=== PATIENT | male | born 1975 | race Two or more races ===

== ENCOUNTER 2016-11-20 19:22 | Emergency (ER) | payer MEDICAID ==
[~2016-11-20] VITALS: Ht 170.2 cm; Wt 108.0 kg
--- NOTE | 2016-11-20 19:49 | Emergency Room Report ---
History of Present Illness General Chief Complaint: Hypertension Present Illness HPI The patient is feeling stressed it with pain in the back of his head. He found his blood pressure was elevated. He treated himself by taking his 's diabetic medications which are metformin 1000 mg and glipizide 4 mg. He decided he needed to be seen. The patient denies any chest pain, shortness of breath, nausea, vomiting, diarrhea, change in vision, sweating, weakness, anxiety. The patient is not treated for hypertension at this time. reports glucose of 421 at home before giving meds. Allergies: Coded Allergies: No Known Allergies (Unverified , 11/20/16) Patient History Past Medical History: see triage record Social History Narrative Reviewed Nursing Documentation: PMH: Agreed, PSxH: Agreed Review of Systems All Other Systems: negative except mentioned in HPI Physical Exam Vital Signs Date Time Temp Pulse Resp B/P Pulse Ox O2 Delivery O2 Flow Rate FiO2 11/20/16 19:35 99.1 98 18 199/99 98 Room Air Sp02 EP Interpretation: reviewed, normal General Appearance: well appearing, no apparent distress, GCS 15 Head: normocephalic Eyes: bilateral eye PERRL, bilateral eye normal inspection ENT: moist mucus membranes Neck: supple Respiratory: lungs clear, normal breath sounds Cardiovascular #1: regular rate, rhythm Cardiovascular #2: 2+ radial (R) Gastrointestinal: normal inspection, normal bowel sounds, non tender, no mass, non-distended Musculoskeletal: back normal, gait/station normal, normal range of motion Neurologic: alert, oriented x3, grossly normal Psychiatric: mood/affect normal Skin: normal inspection, warm/dry, other - sun burn Medical Decision Making Diagnostic Impression: Primary Impression: Hypertension Additional Impression: Unintentional medication ingestion ER Course The patient presents with the back of his head pain and high blood pressure and after taking his 's and diabetic medications. Differential includes essential hypertension, hypertensive urgency, impending hypoglycemia, headache amongst others. Is a nonfocal neurologic exam at this time. Evaluation will be with EKG, chest x-ray and labs including an Accu-Chek. Will be followed his blood pressure and glucose. EKG Diagnostic Results Rate: normal Rhythm: NSR ST Segments: no acute changes Rhythm Strip Diag. Results EP Interpretation: yes Rhythm: NSR, no PVC's, no ectopy Status: improved Disposition: HOME, SELF-CARE Condition: Improved Felicita,Uche M.D. Nov 20, 2016 19:49
[2016-11-20 20:02] VITALS: BP 177/85
[2016-11-20 20:14] LABS: BASOPHILS % (AUTO) 1.9 % (0.0-2.0); EOSINOPHILS % (AUTO) 4.4 % (0.0-3.0); LYMPHOCYTES % (AUTO) 22.1 % (20.0-45.0); MEAN CORPUSCULAR HEMOGLOBIN 31.8 PG (27.0-31.0); MEAN CORPUSCULAR HGB CONC 34.2 G/DL (32.0-36.0); MEAN CORPUSCULAR VOLUME 93 FL (80-99); MEAN PLATELET VOLUME 10.2 FL (6.5-10.1); MONOCYTES % (AUTO) 9.8 % (1.0-10.0); NEUTROPHILS % (AUTO) 61.8 % (45.0-75.0); PLATELET COUNT 156 K/UL (150-450); RED BLOOD COUNT 4.58 M/UL (4.70-6.10); RED CELL DISTRIBUTION WIDTH 12.3 % (11.6-14.8); WHITE BLOOD COUNT 8.1 K/UL (4.8-10.8)
[2016-11-20 20:26] LABS: TROPONIN I < 0.30 ng/mL (<=0.30)
[2016-11-20 20:29] LABS: ALANINE AMINOTRANSFERASE 53 U/L (3-41); ALBUMIN/GLOBULIN RATIO 1.3 (1.0-2.7); ANION GAP 15 (5-15); ASPARTATE AMINO TRANSFERASE 54 U/L (5-40); CALCIUM 9.4 mg/dL (8.6-10.2); CARBON DIOXIDE 26 mEQ/L (20-30); CHLORIDE 100 mEQ/L (98-107); CREATININE 0.9 mg/dL (0.7-1.2); GLOMERULAR FILTRATION RATE > 60 mL/min (>60); HEMOLYSIS 12; POTASSIUM 3.5 mEQ/L (3.4-4.9); SODIUM 141 mEQ/L (135-145); TOTAL PROTEIN 7.6 g/dL (6.6-8.7)
[2016-11-20 21:16] VITALS: BP 166/79
[2016-11-20 22:34] VITALS: BP 170/88
[2016-11-20] MEDS ORDERED: METFORMIN HCL500 M1 ORAL (23:22)
[2016-11-20] MEDS ORDERED: LISINOPRIL10 MG ORAL (23:22)
[2016-11-20] MEDS ORDERED: Lisinopril 10mg tab ORAL ONE (23:30)
[2016-11-20 23:32] VITALS: BP 156/84
[2016-11-20 23:54] VITALS: BP 145/80
[2016-11-20 23:56] VITALS: BP 145/80
--- NOTE | 2016-11-21 10:36 | Diagnostic Imaging Report ---
Indication: Chest pain Technique: Single portable AP view of the chest. Findings: Comparison: None. The bones and extra pulmonary soft tissues, cardiomediastinal silhouette, pulmonary vasculature and parenchyma, and pleural surfaces are unremarkable. IMPRESSION: Negative portable AP chest.
--- NOTE | 2016-11-22 20:07 | Cardiology Report ---
APPROVED REPORT EKG Measurement Heart [id number] ID [id number] Normal sinus rhythm Possible Left atrial enlargement Borderline ECG
== END 2016-11-20 23:56 | disposition home or self-care (01) ==
LOC: EMR 20:10
DX: I10 Essential (primary) hypertension (principal); T38.3X5A Adverse effect of insulin and oral hypoglycemic [antidiabetic] drugs, initial encounter; Y92.9 Unspecified place or not applicable
CPT/HCPCS: 36415; 71010; 80053; 82550; 82962; 84484; 85025; 93005; 99283

== ENCOUNTER 2018-03-22 21:03 | Emergency (ER) | payer MEDICAID ==
[~2018-03-22] VITALS: Ht 172.7 cm; Wt 109.8 kg
[~2018-03-22 21:03] MED LIST: LISINOPRIL10 MG ORAL; METFORMIN HCL500 M1 ORAL
[2018-03-22] MEDS ORDERED: HYDROCHLOROTHIA25 MG ORAL (21:14)
[2018-03-22] MEDS ORDERED: SIMVASTATIN20 MG ORAL (21:14)
[2018-03-22 21:20] VITALS: BP 155/78
[2018-03-22 22:04] VITALS: BP 155/83
--- NOTE | 2018-03-22 22:22 | Emergency Room Report ---
History of Present Illness General Chief Complaint: Hypertension Source: Patient Present Illness HPI Patient is a 42-year-old male presented after increased blood pressure. Patient had recently been seen by his primary provider. He was noted to have elevated blood pressure and was advised to increase the amount of hydrochlorothiazide he was taking. The patient had been noted to have increased stress after the of his brother. He denies any fever. He denies any severe headache or chest discomfort. He reports having increased alcohol use this weekend. He denies any abdominal pain Allergies: Coded Allergies: No Known Allergies (Unverified , 11/20/16) Patient History Past Medical History: see triage record Reviewed Nursing Documentation: PMH: Agreed; PSxH: Agreed Nursing Documentation-PMH Hx Hypertension: Yes Review of Systems All Other Systems: negative except mentioned in HPI Physical Exam Vital Signs Date Time Temp Pulse Resp B/P (MAP) Pulse Ox O2 Delivery O2 Flow Rate FiO2 03/22/18 21:09 98.6 99 16 211/104 99 Room Air Sp02 EP Interpretation: reviewed, normal General Appearance: normal inspection, well appearing, no apparent distress, alert, GCS 15 Head: atraumatic ENT: normal ENT inspection, hearing grossly normal, normal voice Neck: normal inspection, full range of motion, supple, no bony tend Respiratory: normal inspection, lungs clear, normal breath sounds, no respiratory distress, no retraction, no wheezing Cardiovascular #1: regular rate, rhythm, no edema Gastrointestinal: normal inspection, normal bowel sounds, non tender, soft, no guarding, no hernia Genitourinary: no CVA tenderness Musculoskeletal: normal inspection, back normal, normal range of motion Neurologic: normal inspection, alert, oriented x3, responsive, display associate III-XII nml as tested, speech normal Psychiatric: normal inspection, judgement/insight normal, mood/affect normal Skin: normal inspection, normal color, no rash Medical Decision Making Diagnostic Impression: Primary Impression: Hypertension ER Course Patient presented for elevated blood pressure. The differential diagnosis included was not limited to medication noncompliance, anxiety, alcohol withdrawal among others. Patient has a benign exam and does not appear to require any further imaging or laboratory testing at this time. Patient was given Norvasc . The patient appears to have marked improvement in his blood pressure with reassurance. The patient was advised follow-up with his primary care physician for recheck. The patient was advised dietary modification. The patient's blood sugar was noted be minimally elevated due to recent soda. The patient was advised low sugar diet. The patient is advised to follow up with primary care doctor in 1-2 days. Patient is advised to return if any worsening condition or if any changes in status that are concerning. This report is dictated with [employer] clinical data abstractor software which may occasionally lead to discrepancies related to use of this software. Last Vital Signs Date Time Temp Pulse Resp B/P (MAP) Pulse Ox O2 Delivery O2 Flow Rate FiO2 03/22/18 22:04 98.0 77 16 155/83 98 Room Air Status: unchanged Disposition: HOME, SELF-CARE Condition: Stable Referrals: NON PHYSICIAN (PCP) Patient Instructions: DASH Eating Plan Taurus Johnson MD Mar 22, 2018 22:22
== END 2018-03-22 21:55 | disposition home or self-care (01) ==
LOC: EMR 21:36
DX: I10 Essential (primary) hypertension (principal)
CPT/HCPCS: 99282

== ENCOUNTER 2018-06-27 10:57 | Emergency (ER) | payer MEDICAID ==
[~2018-06-27] VITALS: Ht 170.2 cm; Wt 108.9 kg
[~2018-06-27 10:57] MED LIST changes: +HYDROCHLOROTHIA25 MG ORAL; +SIMVASTATIN20 MG ORAL
[2018-06-27] MEDS ORDERED: BENAZEPRIL HCL20 MG ORAL (11:04)
--- NOTE | 2018-06-27 11:09 | NUR ---
ED Nurse Note: patient walked into Ed c/o high blood pressure since yestderday, per patient it was >200 SBP. Checked Vital signs: B 155/85 vss. see flowsheet. c/o neck and facial discomfort, but pt stated that it's not painful. denies CP.
[2018-06-27 11:13] VITALS: BP 155/84
[2018-06-27 12:13] LABS: BASOPHILS % (AUTO) 1.5 % (0.0-2.0); HEMATOCRIT 49.1 % (42.0-52.0); LYMPHOCYTES % (AUTO) 19.9 % (20.0-45.0); MEAN CORPUSCULAR VOLUME 87 FL (80-99); NEUTROPHILS % (AUTO) 64.6 % (45.0-75.0); PLATELET COUNT 200 K/UL (150-450); RED BLOOD COUNT 5.65 M/UL (4.70-6.10); WHITE BLOOD COUNT 7.2 K/UL (4.8-10.8)
[2018-06-27 12:17] LABS: ANION GAP 8 mmol/L (5-15); BLOOD UREA NITROGEN 12 mg/dL (7-18); CALCIUM 9.6 MG/DL (8.5-10.1); CARBON DIOXIDE 28 MMOL/L (21-32); CHLORIDE 100 MMOL/L (98-107); CREATININE 1.2 MG/DL (0.55-1.30); POTASSIUM 3.4 MMOL/L (3.5-5.1); SODIUM 136 MMOL/L (136-145)
[2018-06-27 12:22] LABS: ALANINE AMINOTRANSFERASE 33 U/L (12-78); ALBUMIN 4.3 G/DL (3.4-5.0); ALKALINE PHOSPHATASE 69 U/L (46-116); ASPARTATE AMINO TRANSFERASE 19 U/L (15-37); BILIRUBIN,TOTAL 0.7 MG/DL (0.2-1.0)
--- NOTE | 2018-06-27 12:40 | NUR ---
ED Nurse Note: patient is being discharged cleared by ERMD. discharge paper/instruction given to the patient, patient verbalized understanding. patient a/o x4, ambulated out of Ed with steady gait, with all belongings. ID band removed.
[2018-06-27 13:44] VITALS: BP 155/84
--- NOTE | 2018-06-27 16:47 | Emergency Room Report ---
History of Present Illness General Chief Complaint: Hypertension Source: Patient Present Illness HPI Patient has history hypertension. He is compliant with medications. He states that his blood pressure was severely elevated 180 yesterday. He also complains of some numbness of his face today although that is much improved. He denies any chest pain shortness breath denies any weakness. No other complaints are noted. He just wanted to make sure it was okay.No other modifying factors. No other associated signs and symptoms. No other complaints were noted. Allergies: Coded Allergies: No Known Allergies (Unverified , 06/27/18) Patient History Past Medical History: HTN Past Surgical History: none Pertinent Family History: none Social History: Denies: smoking, alcohol use, drug use Reviewed Nursing Documentation: PMH: Agreed; PSxH: Agreed Nursing Documentation-PMH Past Medical History: No History, Except For Hx Hypertension: Yes Review of Systems All Other Systems: negative except mentioned in HPI Physical Exam Vital Signs Date Time Temp Pulse Resp B/P (MAP) Pulse Ox O2 Delivery O2 Flow Rate FiO2 06/27/18 10:59 98.2 71 16 155/87 97 Room Air Sp02 EP Interpretation: reviewed, normal General Appearance: normal inspection, well appearing, no apparent distress, alert Head: atraumatic Eyes: bilateral eye normal inspection ENT: normal ENT inspection, hearing grossly normal, normal voice Neck: normal inspection, full range of motion, supple, no bony tend Respiratory: normal inspection, lungs clear, normal breath sounds, no respiratory distress, no retraction, no wheezing Cardiovascular #1: regular rate, rhythm, no edema Gastrointestinal: normal inspection, normal bowel sounds, non tender, soft, no guarding, no hernia Genitourinary: no CVA tenderness Musculoskeletal: normal inspection, back normal, normal range of motion Neurologic: normal inspection, alert, responsive, speech normal Psychiatric: normal inspection, judgement/insight normal, mood/affect normal Skin: normal inspection, normal color, no rash Medical Decision Making Diagnostic Impression: Primary Impression: Hypertension ER Course Patient presents emergency department today complaining elevated blood pressure yesterday but blood pressure significantly improved today. Patient is compliant medication has a good supply. He was complains of numbness in his face that appears to have resolved. Differential considerations include CVA, Miranda's palsy, hypertension, anxiety just name a few. Patient's exam is fairly benign but given patient's presentation we'll obtain EKG and laboratory workup. Patient was monitored in emergency Department did not have any further episodes. Given the patient had negative workup appears felt the patient discharged home. This could also be early Miranda's palsy recommend patient return emergency room if there is any weakness of his face.Patient is advised to follow up with primary doctor in 2-3 days and return the emergency room for any worsening symptoms and as needed. Labs Test 06/27/18 11:49 White Blood Count 7.2 K/UL (4.8-10.8) Red Blood Count 5.65 M/UL (4.70-6.10) Hemoglobin 17.0 G/DL (14.2-18.0) Hematocrit 49.1 % (42.0-52.0) Mean Corpuscular Volume 87 FL (80-99) Mean Corpuscular Hemoglobin 30.1 PG (27.0-31.0) Mean Corpuscular Hemoglobin Concent 34.6 G/DL (32.0-36.0) Red Cell Distribution Width 12.0 % (11.6-14.8) Platelet Count 200 K/UL (150-450) Mean Platelet Volume 10.0 FL (6.5-10.1) Neutrophils (%) (Auto) 64.6 % (45.0-75.0) Lymphocytes (%) (Auto) 19.9 % (20.0-45.0) Monocytes (%) (Auto) 10.0 % (1.0-10.0) Eosinophils (%) (Auto) 4.0 % (0.0-3.0) Basophils (%) (Auto) 1.5 % (0.0-2.0) Sodium Level 136 MMOL/L (136-145) Potassium Level 3.4 MMOL/L (3.5-5.1) Chloride Level 100 MMOL/L (98-107) Carbon Dioxide Level 28 MMOL/L (21-32) Anion Gap 8 mmol/L (5-15) Blood Urea Nitrogen 12 mg/dL (7-18) Creatinine 1.2 MG/DL (0.55-1.30) Estimat Glomerular Filtration Rate > 60 mL/min (>60) Glucose Level 114 MG/DL (74-106) Calcium Level 9.6 MG/DL (8.5-10.1) Total Bilirubin 0.7 MG/DL (0.2-1.0) Aspartate Amino Transf (AST/SGOT) 19 U/L (15-37) Alanine Aminotransferase (ALT/SGPT) 33 U/L (12-78) Alkaline Phosphatase 69 U/L (46-116) Total Protein 8.4 G/DL (6.4-8.2) Albumin 4.3 G/DL (3.4-5.0) Globulin 4.1 g/dL Albumin/Globulin Ratio 1.0 (1.0-2.7) EKG Diagnostic Results Rate: normal Rhythm: NSR ST Segments: no acute changes Rhythm Strip Diag. Results EP Interpretation: yes Rate: 71 Rhythm: NSR, no PVC's, no ectopy Last Vital Signs Date Time Temp Pulse Resp B/P (MAP) Pulse Ox O2 Delivery O2 Flow Rate FiO2 06/27/18 13:44 98.6 16 155/84 96 Room Air 06/27/18 11:14 71 Status: improved Disposition: HOME, SELF-CARE Condition: Stable Referrals: NON PHYSICIAN (PCP) Patient Instructions: Hypertension Marco Antonio Yang MD Jun 27, 2018 16:47
--- NOTE | 2018-06-28 17:40 | Cardiology Report ---
APPROVED REPORT EKG Measurement Heart [id number] ID [id number] Normal sinus rhythm Normal ECG
== END 2018-06-27 12:59 | disposition home or self-care (01) ==
LOC: EMR 12:00
DX: I10 Essential (primary) hypertension (principal)
CPT/HCPCS: 36415; 80053; 85025; 93005; 99283